=== PATIENT | male | born 1955 | race Caucasian/White ===

== ENCOUNTER → 2025-02-20 | Day surgery (SDC) | payer MEDICARE, OTHER ==
[~2025-02-20] MED LIST: Dexamethasone 4 MG/ML SDV ONE; Glycopyrrolate 0.2 MG/ML 5 ML MDV ONE; Lactated Ringers 1,000 ML ONE; Ondansetron 4 MG/2 ML SDV ONE; Propofol 200 MG/20 ML SDV ONE; Succinylcholine 200 MG/10 ML MDV ONE; fentaNYL 100 MCG/2 ML SDV ONE
== END ==
LOC: JP.ED 20:33 → JP.SDS 21:58
PROVIDERS: ATTEND Surgery
DX: T18.128A Food in esophagus causing other injury, initial encounter (principal); Z87.891 Personal history of nicotine dependence; W44.8XXA Other foreign body entering into or through a natural orifice, initial encounter
CPT/HCPCS: 96360; 99283-25; J0330; J1100; J1596; J2405; J2704; J2710; J3010; J3490; J7030; J7120